=== PATIENT | male | born 1995 ===

== ENCOUNTER 2025-06-10 23:56 | Emergency (ER) | payer SELFPAY | END 2025-06-11 01:18 | LOC: BURERS 23:56 | DX: S00.531A Contusion of lip, initial encounter (principal); R04.0 Epistaxis; R29.700 NIHSS score 0; Z23 Encounter for immunization; V43.52XA Car driver injured in collision with other type car in traffic accident, initial encounter | CPT/HCPCS: 70450; 90471; 90715 ==